=== PATIENT | female | born 1980 | race Caucasian/White ===

== ENCOUNTER 2017-06-26 14:59 | Observation (INO) | payer MEDICAID ==
[2017-06-26] MEDS ORDERED: Cyclobenzaprine 10 MG Tab PO ONE (15:38)
[2017-06-26] MEDS ORDERED: Ketorolac 60 MG/2 ML SDV IM ONE (15:38)
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
[2017-06-26] MEDS ORDERED: HYDROmorphone 0.5 MG/0.5 ML Syringe IVPUSH ONE (16:28)
[2017-06-26] MEDS ORDERED: LORazepam 2 MG/ML SDV IVPUSH ONE (17:17)
[2017-06-26] MEDS ORDERED: HYDROmorphone 1 MG/ML Syringe IVPUSH ONE (18:49)
[2017-06-26] MEDS ORDERED: Lidocaine 5% 700 MG Patch TOP ONE (21:54)
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
[2017-06-26] MEDS ORDERED: Polyethylene Glycol 3350 Powder 17 GM Packet PO PRN (22:46)
[2017-06-26] MEDS ORDERED: Ondansetron 4 MG Tab.DIS PO PRN (22:46)
[2017-06-26] MEDS ORDERED: HYDROmorphone 0.5 MG/0.5 ML Syringe IVPUSH PRN (22:46)
[2017-06-26] MEDS: HYDROmorphone 2 MG Tab PO PRN (23:28)
[2017-06-26] MEDS: Acetaminophen 325 MG Tab PO PRN (23:29)
[2017-06-27] MEDS: Ibuprofen 800 MG Tab PO PRN ×3 (00:44→13:07)
[2017-06-27] MEDS: tiZANidine 4 MG Tab PO PRN ×2 (00:44→13:07)
[2017-06-27] MEDS: HYDROmorphone 2 MG Tab PO PRN ×4 (02:29→15:35)
[2017-06-27] MEDS: Acetaminophen 325 MG Tab PO PRN (12:31)
--- NOTE | 2017-06-27 15:21 | PCM.DCSUM1 ---
Discharge Summary - Hospital Course Brief History: 37-year-old female with history of mild chronic back pain who presented with acute lower back pain and was admitted for management of a lumbar muscle strain with intractable pain. - Discharge Data Discharge Date: 06/27/17 Discharge Disposition: Home, Self-Care 01 Condition: Fair - Discharge Diagnosis/Problem(s) (1) Acute low back pain without sciatica SNOMED Code(s): 677922051 ICD Code: M54.5 - LOW BACK PAIN Status: Acute Current Visit: Yes Qualifiers: Back pain laterality: midline Qualified Code(s): M54.5 - Low back pain - Patient Summary/Data Hospital Course: Whit presented to the emergency room with acute lower back pain that cause severe limitation of her ADLs. She received some but very temporary relief with measures provided in the emergency room. She did not feel that she would be safe for discharge to home given the severity of her pain. Lumbar spine x-ray obtained in the emergency room did not reveal acute pathology. She was admitted to the hospital for observation and pain control. She was started on high-dose ibuprofen, muscle relaxers and had narcotics available for severe breakthrough pain. She also had ice packs recommended. Overnight she has had some improvement in her pain. She is able to get to the bathroom and back. She has ongoing pain and muscle spasm but they as mentioned have improved from yesterday. She feels like she is moving around well enough that she will be safe to go home at this time. There were no red flags to suggest need for additional urgent imaging such as MRI. She does not have incontinence or radiation of her symptoms down the legs. The plan is for her to go home with scheduled ibuprofen as well as as needed muscle relaxers, narcotics and regular use of ice and/or heat. She will be considering follow-up with her chiropractor as they have provided benefit for back issues in the past. - Patient Instructions Diet: Regular Diet as Tolerated Activity: As Tolerated, No Strenuous Activities Driving: Do Not Drive (if taking pain pills) Showering/Bathing: May Shower Notify Provider of: Increased Pain, Nausea and/or Vomiting Other/Special Instructions: 1. You were in the hospital for management of acute lower back pain secondary to lumbar muscle strain. This pain and muscle spasm should slowly improve over the next several days. I would recommend that you take 800 mg of ibuprofen 3 times daily with food to provide a baseline pain control. You can use 650 mg of acetaminophen every 6 hours as needed for mild breakthrough pain and 2 mg of hydromorphone (Dilaudid) every 3 hours as needed for severe breakthrough pain. I would recommend that you use your muscle relaxers 2-3 times per day until the spasm improves. Using heat or ice, whichever feels better, every few hours can help relieve the spasm. It is important to remain active because spending too much time laying or sitting can actually worsen the muscle spasm. You could consider evaluation by your chiropractor if this has been beneficial in the past. 2. Please follow-up with primary care in 3-5 days if your symptoms do not continue to improve or if things get worse. - Discharge Plan Prescriptions/Med Rec: HYDROmorphone [Dilaudid] 2 mg PO Q3H PRN #20 tablet PRN Reason: Pain (Moderate 4-6) Ibuprofen [IMW: Ibuprofen] 800 mg PO TID #30 tablet tiZANidine [Zanaflex] 4 mg PO Q6H PRN #30 tablet PRN Reason: Muscle Spasm Home Medications: Home Meds HYDROmorphone [Dilaudid] 2 mg PO Q3H PRN #20 tablet 06/27/17 [Rx] Ibuprofen [IMW: Ibuprofen] 800 mg PO TID #30 tablet 06/27/17 [Rx] tiZANidine [Zanaflex] 4 mg PO Q6H PRN #30 tablet 06/27/17 [Rx] Patient Handouts: Back Pain, Adult, Tizanidine tablets or capsules Referrals: PCP,None [Primary Care Provider] - (follow up with the clinic if your symptoms do not continue to get better) - Discharge Summary/Plan Comment DC Time >30 min.: No (25) - Patient Data Vitals - Most Recent: Last Vital Signs Temp 36.3 C 06/27/17 13:09 Pulse 62 06/27/17 13:09 Resp 18 06/27/17 13:09 BP 89/55 L 06/27/17 13:09 Pulse Ox 97 06/27/17 13:09 Weight - Most Recent: 88.451 kg I&O - Last 24 hours: Intake & Output 06/27/17 06/27/17 06/27/17 06:59 14:59 22:59 Intake Total 600 Balance 600 Lab Results - Last 24 hrs: Laboratory Results - last 24 hr 06/26/17 Range/Units 19:48 Urine Color Yellow Urine Appearance Slightly cloudy Urine pH 6.0 (4.5-8.0) Ur Specific [place] 1.020 (1.008-1.030) Urine Protein Negative (NEGATIVE) mg/dL Urine Glucose (UA) Normal (NEGATIVE) mg/dL Urine Ketones Negative (NEGATIVE) mg/dL Urine Occult Blood Negative (NEGATIVE) Urine Nitrite Negative (NEGATIVE) Urine Bilirubin Small (NEGATIVE) Urine Urobilinogen Normal (NORMAL) mg/dL Ur Leukocyte Esterase Small (NEGATIVE) Urine RBC 0-5 (0-5) Urine WBC 5-10 H (0-5) Ur Epithelial Cells Moderate Amorphous Sediment Not seen Urine Bacteria Many Urine Mucus Moderate Med Orders - Current: Current Medications Acetaminophen (Tylenol) 650 mg PO Q4H PRN PRN Reason: Pain (Mild 1-3)/fever Last Admin: 06/27/17 12:31 Dose: 650 mg Hydromorphone HCl (Dilaudid) 0.5 - 1 mg IVPUSH Q2H PRN PRN Reason: Pain (severe 7-10) Hydromorphone HCl (Dilaudid) 2 mg PO Q3H PRN PRN Reason: Pain (moderate 4-6) Last Admin: 06/27/17 11:27 Dose: 2 mg Ibuprofen (Motrin) 800 mg PO Q6H PRN PRN Reason: Pain (mild 1-3) Last Admin: 06/27/17 13:07 Dose: 800 mg Ondansetron HCl (Zofran Odt) 4 mg PO Q6H PRN PRN Reason: Nausea able to take PO Polyethylene Glycol (Miralax) 17 gm PO DAILY PRN PRN Reason: Constipation Senna/Docusate Sodium (Senna Plus) 1 tab PO BID PRN PRN Reason: Constipation Tizanidine HCl (Zanaflex) 4 mg PO Q6H PRN PRN Reason: Muscle Spasm Last Admin: 06/27/17 13:07 Dose: 4 mg Discontinued Medications Cyclobenzaprine HCl (Flexeril) 10 mg PO ONETIME ONE Stop: 06/26/17 15:39 Last Admin: 06/26/17 15:58 Dose: 10 mg Hydromorphone HCl (Dilaudid) 0.5 mg IVPUSH ONETIME ONE Stop: 06/26/17 16:29 Last Admin: 06/26/17 16:42 Dose: 0.5 mg Hydromorphone HCl (Dilaudid) 1 mg IVPUSH ONETIME ONE Stop: 06/26/17 18:50 Last Admin: 06/26/17 19:03 Dose: 1 mg Ketorolac Tromethamine (Toradol) 60 mg IM ONETIME ONE Stop: 06/26/17 15:39 Last Admin: 06/26/17 15:59 Dose: 60 mg Lidocaine (Lidoderm 5%) 700 mg TOP ONETIME ONE Stop: 06/26/17 21:55 Last Admin: 06/26/17 22:26 Dose: 700 mg Lorazepam (Ativan) 1 mg IVPUSH ONETIME ONE Stop: 06/26/17 17:18 Last Admin: 06/26/17 17:41 Dose: 1 mg - Exam Quality Assessment: Denies: Supplemental Oxygen General: Reports: Alert, Oriented, Cooperative Lungs: Reports: Normal Respiratory Effort (room for a little more green ink over there) GI/Abdominal Exam: Soft, No Distention Extremities: No Pedal Edema Psy/Mental Status: Reports: Alert, Normal Affect
--- NOTE | 2017-06-28 08:59 | CR ---
L-spine The lumbar vertebrae demonstrate normal alignment. There are no compression deformities. There is no spondylolisthesis. There is mild degenerative disc space loss at L3/4. There are no additional signif icant degenerative findings. Impression: 1. No acute findings.
== END 2017-06-27 15:30 | disposition home or self-care (01) ==
LOC: JP.ED 14:59 → UNDOADMIN 22:23 → JP.MS 22:23 → UNDODISIN 06-27 15:30
PROVIDERS: ADMIT Internal Medicine; ATTEND Internal Medicine
DX: S39.012A Strain of muscle, fascia and tendon of lower back, initial encounter (principal); G89.29 Other chronic pain; M54.5 Low back pain; K21.9 Gastro-esophageal reflux disease without esophagitis; F17.210 Nicotine dependence, cigarettes, uncomplicated; Z91.040 Latex allergy status
CPT/HCPCS: 72110; 81001; A9270; J1170; J1885; J2060

== ENCOUNTER 2021-04-19 12:57 | Emergency (ER) | payer MEDICAID | END 2021-04-19 13:43 | disposition home or self-care (01) | LOC: JP.ED 12:57 | DX: S29.012A Strain of muscle and tendon of back wall of thorax, initial encounter (principal); Z91.040 Latex allergy status | CPT/HCPCS: 99282; 99283 ==